=== PATIENT | female | born 1950 | race Caucasian/White ===

== ENCOUNTER 2016-08-07 21:03 | Observation (INO) | payer MEDICARE ==
[~2016-08-07] VITALS: Ht 170.2 cm; Wt 142.0 kg
[~2016-08-07 21:03] MED LIST: AMOXICILLIN500 MG PO; ATENOLOL25 MG PO; ATENOLOL50 MG PO; CELEXA40 M1 PO; LISINOPRIL10 MG PO; LISINOPRIL20 M1 OR; MEGESTROL AC40 MG PO; METFORMIN500 MG PO; NYSTATIN100000 M4 TOP; PRAVASTATIN SOD10 MG PO; PREDNISONE5 MG PO; PRILOSEC40 MG PO; SYNTHROID150 MCG OR; SYNTHROID150 MCG PO; TRIAMCINOLON0.11 EX
--- NOTE | 2016-08-07 21:05 | NUR ---
PATIENT TO ROOM 13 VIA EMS STRETCHER. UNDRESSED INTO A GOWN. PLACED ON MONITOR. TRIAGE COMPLETED AT BEDSIDE.
--- NOTE | 2016-08-07 21:06 | NUR ---
PT. TO ROOM 13 VIA EMS WITH C/O NAUSEA AND VOMITING X 1 HR. AFTER GOING TO A COOK OUT. EMS ADMINISTERED IV ZOFRAN. PT. V/S HR 78 O2 SAT 88-90%, BP 137/58. AWARE. EMS ALSO ADMINISTER O2 AT 2 LIT N/C FOR O2 SAT AT 86-88%.
[2016-08-07 21:35] LABS: HEMATOCRIT 44.2 % (37.0-47.0); HEMOGLOBIN 13.5 g/dl (12.0-16.0); IMMATURE GRANULOCYTES 0.3 % (0.0-1.0); MEAN CELL VOLUME 93.4 fL CALC (80.0-100.0); MEAN CORPUSCULAR HGB 28.5 pG CALC (26.0-32.0); MEAN CORPUSCULAR HGB CONC 30.5 g/L CALC (32.0-36.0); NEUT# 6.72 thou/uL (2.00-7.15); RED BLOOD COUNT 4.73 mill/uL (4.20-5.60); RED CELL DISTRI WIDTH 15.9 % (11.5-15.5)
--- NOTE | 2016-08-07 21:40 | NUR ---
PO ANTIVERT GIVEN PER MD ORDER.
[2016-08-07 21:48] LABS: ALBUMIN 4.3 g/dL (3.2-5.0); ALKALINE PHOSPHATASE 88 u/l (38-126); AMYLASE 60 u/l (30-110); ANION GAP 14 (6-22 (CALC)); BILIRUBIN, TOTAL 0.4 mg/dL (0.0-1.4); BUN 16 mg/dL (8-23); BUN/CREATININE RATIO 16 (12-20 (CALC)); CALCIUM 9.3 mg/dL (8.4-10.2); CARBON DIOXIDE 34 mmol/l (22-30); CHLORIDE 98 mmol/l (95-108); GFR 55 ML/MIN (>=60 (CALC)); GFR FOR AFR.AMER. > 60 ML/MIN (>=60 (CALC)); GLUCOSE 165 mg/dL (82-115); LIPASE 116 u/l (23-300); POTASSIUM 4.4 mmol/l (3.5-5.1); SGOT/AST 21 u/l (9-36); SGPT/ALT 28 u/l (11-66); SODIUM 142 mmol/l (137-146); TOTAL PROTEIN 8.3 g/dL (6.3-8.2)
[2016-08-07 22:01] LABS: MYOGLOBIN 42 ng/mL (0 - 62)
--- NOTE | 2016-08-07 22:30 | NUR ---
PT. RESTING ON STRETCHER, NO C/O AT THIS TIME. O2 ON AT 2 LIT/NC. O2 SAT 98%.
--- NOTE | 2016-08-07 23:00 | NUR ---
NO S/S OF NAUSEA OR VOMITING NOTED.
--- NOTE | 2016-08-07 23:30 | NUR ---
IN CAT SCAN. AT THIS TIME.
[2016-08-08] VITALS (7 sets, daily range): BP systolic 101–164; BP diastolic 43–63
[2016-08-08 00:09] LABS: URINE BILIRUBIN - DIPSTICK NEGATIVE (NEGATIVE); URINE BLOOD DIPSTICK NEGATIVE (NEGATIVE); URINE CLARITY TURBID; URINE COLOR YELLOW; URINE GLUCOSE - DIPSTICK NEGATIVE (NEGATIVE); URINE KETONE NEGATIVE (NEGATIVE); URINE LEUK ESTERASE NEGATIVE (NEGATIVE); URINE NITRITE - DIPSTICK NEGATIVE (Negative); URINE PROTEIN - DIPSTICK NEGATIVE (NEG-TRACE); URINE SPECIFIC GRAVITY 1.015; URINE UROBILINOGEN - DIPSTICK 0.2 E.U./dL (0.2)
--- NOTE | 2016-08-08 00:14 | NUR ---
MD IN ROOM TO DISCUSS CLINICAL FINDINGS AND INFORM PT. OF ADMISSION, VERBALIZED UNDERSTANDING.
--- NOTE | 2016-08-08 00:50 | NUR ---
Admission Note Report Given to: MARLO WALKER Transported by: Wheelchair X Stretcher Transported with: X Nurse Transporter X Patent IV X O2 X Camera Mechanic
--- NOTE | 2016-08-08 01:26 | NUR ---
PT. TAKEN TO ICU VIA STRETCHER, NO C/O.
--- NOTE | 2016-08-08 01:36 | NUR ---
female pt received to ICU 4 (ms of) via stretcher accompanied by Michael Omalley RN in stable condition; ambulatory from bed to scale with steady gait; admission assessment completed at this time; pt alert and oriented; complaints of nausea and dizziness upon transfer; resp even and unlabored; lungs clear/ diminished bases; skin color wnl; o2 per nc at 2L; hr reg; sr on monitor; strong pulses; no edema noted; abd soft/distended with bs present; pt admits to normal bm 08/07/16; admits to voiding without pain or burning; #20 in lac flushed and patent; no redness or edema noted at site; plan of care explained; pt requesting additional medication for nausea/ md to be notified; oriented to bed and call light; will continue to monitor
--- NOTE | 2016-08-08 02:25 | NUR ---
pt with complaints of nausea; orders received for zofran;
--- NOTE | 2016-08-08 02:40 | NUR ---
zofran explained to pt in detail; administered as per orders; will continue to monitor
--- NOTE | 2016-08-08 04:05 | NUR ---
pt awake; up to bathroom per self; no distress noted; iv intact; sr on monitor; offers no complaints; pt encouraged to use call light; will continue to monitor closely;
--- NOTE | 2016-08-08 05:39 | NUR ---
pt resting in bed with eyes closed; no distress noted; iv intact; o2 per nc; sr on monitor; bed in lowest position; call light within reach
--- NOTE | 2016-08-08 07:05 | NUR ---
PT LAYING IN BED WATCHING TV, A & O X3, PERRL, PT DENIES ANY PAIN NAUSEA & DIZZINESS, HR 76, RESP. 20, BP 137/48, O2 98% ON 2L VIA NC, LUNG SOUNDS CLEAR IN ALL [place], 20G LAC IV SALINE LOCKED, AM ASSESSMENT COMPLETE, SEE INTERVENTIONS, SAFETY MEASURES REINFORCED, CALL SANCHEZ WITHIN REACH
--- NOTE | 2016-08-08 07:30 | NUR ---
SETUP ASSISTANCE PROVIDED WITH AM MEAL TRAKiel
--- NOTE | 2016-08-08 09:10 | NUR ---
PT ASSISTED WITH GETTING UP TO RECLINER BY BILINGUAL MANAGER, PT AMBULATED WITH A STRONG STEADY GAIT, PT TOLERATED WELL
--- NOTE | 2016-08-08 10:10 | NUR ---
DR OCHOA AT BEDSIDE DISCUSSING PLAN OF CARE
--- NOTE | 2016-08-08 10:32 | NUR ---
PT SITTING UP IN THE RECLINER SLEEPING, PT NOT WEARING O2 SAT 79%, WOKE PT UP AND PLACED O2 BACK ON AT 2L VIA NC, PT'S SAT UP TO 94% WITH 2L
--- NOTE | 2016-08-08 11:30 | NUR ---
PT SITTING UP IN THE RECLINER, TOLERATING WELL, SETUP ASSISTANCE PROVIDED WITH LUNCH TRAY
--- NOTE | 2016-08-08 12:05 | NUR ---
WALKED PT FOR O2 WALK TEST, PT'S RESTING O2 88%, WALKING O2 WITHOUT O2 69%, RESTING O2 WITH O2 ON 94%
--- NOTE | 2016-08-08 13:30 | NUR ---
PT SITTING UP IN RECLINER WITH AT BEDSIDE, TOLERATING WELL
== END 2016-08-08 16:15 | disposition home or self-care (01) ==
LOC: ENPENDDIS → ED 21:03 → ED-I 23:45 → ED 23:56 → ICU 23:57
PROVIDERS: Emergency Medicine; ADMIT Internal Medicine; ATTEND Internal Medicine
DX: E66.2 Morbid (severe) obesity with alveolar hypoventilation (principal); J96.01 Acute respiratory failure with hypoxia; I10 Essential (primary) hypertension; E03.9 Hypothyroidism, unspecified; E11.9 Type 2 diabetes mellitus without complications; Z68.42 Body mass index [BMI] 45.0-49.9, adult; Z79.84 Long term (current) use of oral hypoglycemic drugs; R06.02 Shortness of breath

== ENCOUNTER 2021-07-21 06:48 | Day surgery (SDC) | payer MEDICARE ==
[~2021-07-21] VITALS: Ht 165.1 cm; Wt 121.1 kg
[~2021-07-21 06:48] MED LIST changes: +EUTHYROX88 MCG PO; +FUROSEMIDE20 MG PO; +LOSARTAN POTASS25 MG PO; +TRESIBA100 UNIT/M SC
[2021-07-21 09:56] VITALS: BP 133/80
== END 2021-07-21 10:12 | disposition home or self-care (01) ==
LOC: ENDO 06:48 → ORM 08:45 → ENDO 08:45
PROVIDERS: ATTEND Surgery
PROC: 0DBP8ZX Excision of Rectum, Via Natural or Artificial Opening Endoscopic, Diagnostic (ICD-10-PCS; principal; 2021-07-21)
PROC: 0DBN8ZX Excision of Sigmoid Colon, Via Natural or Artificial Opening Endoscopic, Diagnostic (ICD-10-PCS; 2021-07-21)
PROC: 0DBH8ZX Excision of Cecum, Via Natural or Artificial Opening Endoscopic, Diagnostic (ICD-10-PCS; 2021-07-21)
PROC: 0DBL8ZX Excision of Transverse Colon, Via Natural or Artificial Opening Endoscopic, Diagnostic (ICD-10-PCS; 2021-07-21)
DX: D12.8 Benign neoplasm of rectum (principal); D12.0 Benign neoplasm of cecum; D12.5 Benign neoplasm of sigmoid colon; D12.3 Benign neoplasm of transverse colon; K64.8 Other hemorrhoids; I10 Essential (primary) hypertension; E11.9 Type 2 diabetes mellitus without complications; Z79.4 Long term (current) use of insulin; Z80.0 Family history of malignant neoplasm of digestive organs